=== PATIENT | male | born 1985 | race Caucasian/White ===

== ENCOUNTER 2017-06-09 23:44 | Emergency (ER) | payer OTHER ==
[~2017-06-09] VITALS: Ht 177.8 cm; Wt 108.9 kg
[2017-06-09] MEDS ORDERED: NKM (23:54)
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
[2017-06-10 05:37] VITALS: BP 122/88
== END 2017-06-10 05:39 | disposition home or self-care (01) ==
LOC: EDBD 23:44 → EMR 23:59
DX: S60.552A Superficial foreign body of left hand, initial encounter (principal); S60.551A Superficial foreign body of right hand, initial encounter; S10.95XA Superficial foreign body of unspecified part of neck, initial encounter; Y35.891A Legal intervention involving other specified means, law enforcement official injured, initial encounter; Y92.89 Other specified places as the place of occurrence of the external cause
CPT/HCPCS: 99283